=== PATIENT | female | born 1945 | race Two or more races ===

== ENCOUNTER 2017-02-03 14:08 | Emergency (ER) | payer OTHER ==
[2017-02-03] MEDS ORDERED: ALTEPLASE 100 MG VIAL IV ONE (14:09)
[2017-02-03] MEDS ORDERED: IOPAMIDOL 370 (76%) 100 ML VIAL IV ONE (14:09)
[2017-02-03 15:06] LABS: ABSOLUTE NEUTROPHIL COUNT 7.9 K/mm3 (1.8-7.7); BASO # 0.1 K/mm3 (0.0-0.2); BASO % 0.6 % (0.2-1.0); EOS # 0.3 (0.0-0.5); HEMATOCRIT 35.2 % (37.0-47.0); HEMOGLOBIN 11.6 gm/l (12.0-16.0); IMM NEUT% 0.4 % (0-1); LYMPH % 17.9 % (15-45); MEAN CELL VOLUME 86.9 fl (81.0-99.0); MEAN CORPUSCULAR HEMOGLOBIN 28.6 pg (27.0-31.0); MEAN PLATELET VOLUME 11.4 fl (7.4-10.4); MONO # 0.9 (0.0-0.8); MONO % 7.6 % (4-12); NEUT % 70.5 % (43-75); PLATELET COUNT 296 K/mm3 (130-400)
[2017-02-03] MEDS ORDERED: LABETALOL HCL 5 MG/ML 20ML VIAL IV ONE (15:22)
[2017-02-03 15:24] LABS: ALB/GLOB RATIO 1.3 (>1.0); ALBUMIN 4.1 gm/dL (3.5-5.7); CALCIUM 10.4 mg/dL (8.6-10.3)
--- NOTE | 2017-02-03 15:37 | CT ---
CTA HEAD W/ POST PROCESS, CTA CAROTID W/ POST PROCESS, HEAD W/O CON: 02/03/2017 2:48 PM CLINICAL HISTORY: Dizziness. COMPARISON: None. TECHNIQUE: Contiguous axial 5 mm images from skull base to the vertex were obtained without IV contrast. Sagittal and coronal reformations with bone algorithm images were also obtained at this time. CTA imaging was performed over the same area and 1 mm collimation after the uneventful IV ministration of 80 cc of Isovue-370. Sagittal and coronal reformations were also obtained this time. 3-D volumetric images were created. DLP: 2929.8 FINDINGS: Infarct: None Extra axial spaces: Normal in size and morphology for the patient's age. Hemorrhage: None. Ventricular system: Normal in size and morphology for the patient's age. Basal cisterns: Normal. Cerebral parenchyma: Normal. Midline shift: None. Cerebellum: Normal. Brainstem: Normal. OTHER: Calvarium: Normal. Vascular system: Normal. Visualized Paranasal sinuses and Mastoid air cells: Mucosal thickening within the left sphenoid sinus is present. Possible mucous retention cyst. Remainder are well aerated.. Visualized Orbits and regional soft tissues: Normal. CTA: Significant stenosis is identified within the clinoid portion of the ICA course bilaterally, left greater than right. The flow becomes quite threadlike particularly on axial image 114 on the left. However flow is still present despite the severe stenosis. No occlusion, dissection, aneurysm motion or aneurysm is present. The left vertebral artery terminates in PICA. Posterior communicating arteries are diminutive bilaterally. The left anterior cerebral artery gets much of its flow across the anterior communicating artery with a minimal diminutive branch from the supraclinoid ICA. IMPRESSION: Significant stenosis is identified within the bilateral clinoid portion of the ICA, left greater than right. No calcific plaque is noted in this region. No occlusion, aneurysm or dissection is identified. No acute intracranial process. CTA HEAD W/ POST PROCESS, CTA CAROTID W/ POST PROCESS, HEAD W/O CON: 02/03/2017 2:48 PM CLINICAL INDICATION: Dizziness COMPARISON: None. (MR) Sequences Performed: None (CT) Scan Technique: Contiguous axial 2 mm images from the AP window through the orbital meatal line are obtained after the uneventful CTA ministration of contrast . Sagittal and coronal reformations were also obtained this time. Maximal intensity projection series were created. Contrast: 80 ml of Isovue-370 contrast administered. FINDINGS: Orbits/Paranasal Sinuses/Skull Base: Mucosal thickening is present within the left sphenoid sinus with possible mucous retention cyst. Nasopharynx: Normal Suprahyoid Neck: Fatty atrophy of the masseter muscles is noted bilaterally. Finding is of unknown clinical significance. Otherwise normal. Infrahyoid Neck: Normal Thyroid: Large heterogeneous partially calcified mass involving the right thyroid measuring 3.6 x 2.5 cm on axial image 78. The remainder of the thyroid is unremarkable. Some of this mass extends towards the sternal notch. Thoracic Inlet: Normal Lymph Nodes: Right paratracheal node on image 107 measures 2.2 x 1.2 cm. Right paratracheal node on image 96 measures 2.2 x 1.3 cm. Right paratracheal node on image 88 measures 1 x 1.2 cm. Nodes are enlarged without respect histology. Vascular Structures: The origin of the extracranial for vessels is normal. Mild atherosclerotic plaque is noted at the right, greater than left carotid bulb. No stenosis, occlusion or dissection. The right vertebral artery is dominant. Other Findings: Osseous structures demonstrate multilevel degenerative changes of the spine. No lytic or sclerotic lesions. IMPRESSION: No vascular abnormality is noted for the patient's stated dizziness. Large thyroid lesion on the right, heterogeneous with areas of calcification. Histologic sampling is warranted, if not are deep performed at an outside institution. Adenopathy within the right mediastinum of unknown clinical significance. Correlation with any outside imaging would be recommended. Findings were called to Dr. Allen at approximately 1532 hours on 02/03/2017.
[2017-02-03 16:13] LABS: URINE BILIRUBIN NEGATIVE (NEGATIVE); URINE BLOOD TRACE (NEGATIVE); URINE GLUCOSE (UA) 3+ (NEGATIVE); URINE LEUKOCYTE ESTERASE NEGATIVE (NEGATIVE); URINE NITRITE NEGATIVE (NEGATIVE); URINE PROTEIN 1+ (NEGATIVE); URINE UROBILINOGEN NORMAL (0-1 mg/dl)
[2017-02-03 16:14] LABS: URINE APPEARANCE HAZY; URINE COLOR LIGHT YELLOW
[2017-02-03] MEDS ORDERED: SODIUM CHLORIDE 0.9% 50 ML IV ONE (16:37)
[2017-02-03 16:38] LABS: URINE BACTERIA RARE; URINE EPITHELIAL CELLS 0 /hpf
== END 2017-02-03 17:36 | disposition other institution (70) ==
LOC: ED 14:08
DX: I63.9 Cerebral infarction, unspecified (principal); E07.9 Disorder of thyroid, unspecified; I10 Essential (primary) hypertension; K21.9 Gastro-esophageal reflux disease without esophagitis; Z79.899 Other long term (current) drug therapy
CPT/HCPCS: 85025; 80053; 81001; 70450; 70496; 70498; 96376 ×3; 99285 ×2; 96374; 93005; J2997; J7050; Q9967